=== PATIENT | male | born 1965 ===

== ENCOUNTER 2020-12-21 04:53 | Inpatient (IN) | payer MEDICAID ==
[~2020-12-21] VITALS: Ht 165.1 cm; Wt 68.9 kg
[2020-12-21] MEDS ORDERED: ONDANSETRON HCL 4 MG/2 ML VIAL IV ONE ×2 (05:30→18:00)
[2020-12-21] MEDS ORDERED: MORPHINE SULFATE 4 MG/ML SYR/VIAL IV ONE (05:30)
[2020-12-21] MEDS ORDERED: SODIUM CHLORIDE 0.9% 1,000 ML IV ONE ×2 (05:30→15:15)
[2020-12-21 08:16] LABS: Albumin 3.6 g/dL (3.4-5.0); Calcium 8.5 mg/dL (8.5-10.1); Potassium 3.9 mmol/L (3.5-5.1)
[2020-12-21 08:19] LABS: BUN/Creatinine Ratio 20.9; Bilirubin, Total 1.1 mg/dL (0.2-1.0); Total Protein 6.9 g/dL (6.4-8.2)
[2020-12-21 08:45] LABS: Basophils # (auto) 0 10 ^3/uL (0-0.2); Basophils % (auto) 0.3 % (0.0-2.0); Eosinophils # (auto) 0 10 ^3/uL (0-0.8); Eosinophils % (auto) 0.1 % (0.0-7.0); Hematocrit 41.3 % (41.0-53.0); Hemoglobin 14.4 g/dL (13.5-17.5); Lymphocytes # (auto) 0.5 10 ^3/uL (0.4-5.4); Lymphocytes % (auto) 6.6 % (10.0-50.0); Mean Corpuscular Hemoglobin 31.7 pg (28.0-32.0); Mean Corpuscular Hgb Conc. 34.9 g/dL (32.0-36.0); Mean Corpuscular Volume 90.8 fL (80.0-100.0); Monocytes # (auto) 0.4 10 ^3/uL (0-1.3); Monocytes % (auto) 5.3 % (0.0-12.0); Neutrophils # (auto) 7.2 10 ^3/uL (1.6-8.6); Neutrophils % (auto) 87.7 % (37.0-80.0); Nucleated Red Blood Cells % 0.1 %; Red Blood Cells 4.54 10^6/uL (4.5-5.90); Red Cell Distribution Width 12.8 % (11.8-14.3); White Blood Cell 8.2 10^3/uL (4.4-10.8)
[2020-12-21 09:12] LABS: Lipase 5740 U/L (73-393)
[2020-12-21] MEDS ORDERED: cefTRIAXone 1GM/50ML D5W 50 ML IV ONE (12:15)
[2020-12-21] MEDS ORDERED: metroNIDAZOLE 500MG/100ML 100 ML IV ONE (12:15)
[2020-12-21] MEDS ORDERED: IOHEXOL 300 MG/ML 100ML BOTTLE IJ ONE (12:21)
[2020-12-21] MEDS ORDERED: MORPHINE SULFATE INJECTION 2 MG/ML SYRG IV PRN (15:15)
[2020-12-21] MEDS: LACTATED RINGER'S 1,000 ML IV SCH (15:15)
[2020-12-21] MEDS ORDERED: NITROGLYCERIN 0.4 MG SL TAB SL PRN (15:15)
[2020-12-21 15:51] LABS: Basophils # (auto) 0 10 ^3/uL (0-0.2); Basophils % (auto) 0.4 % (0.0-2.0); Eosinophils # (auto) 0 10 ^3/uL (0-0.8); Eosinophils % (auto) 0.1 % (0.0-7.0); Hematocrit 42.9 % (41.0-53.0); Hemoglobin 14.7 g/dL (13.5-17.5); Lymphocytes # (auto) 0.9 10 ^3/uL (0.4-5.4); Lymphocytes % (auto) 9.4 % (10.0-50.0); Mean Corpuscular Hemoglobin 31.3 pg (28.0-32.0); Mean Corpuscular Hgb Conc. 34.2 g/dL (32.0-36.0); Mean Corpuscular Volume 91.5 fL (80.0-100.0); Monocytes # (auto) 0.6 10 ^3/uL (0-1.3); Neutrophils # (auto) 7.7 10 ^3/uL (1.6-8.6); Neutrophils % (auto) 83.1 % (37.0-80.0); Nucleated Red Blood Cells % 0.1 %; Red Blood Cells 4.69 10^6/uL (4.5-5.90); Red Cell Distribution Width 13.1 % (11.8-14.3); White Blood Cell 9.3 10^3/uL (4.4-10.8)
[2020-12-21 16:02] LABS: BUN/Creatinine Ratio 17.4; Calcium 7.9 mg/dL (8.5-10.1); Potassium 4.5 mmol/L (3.5-5.1)
[2020-12-21] MEDS ORDERED: FOLIC ACID 1 MG, MULTIPLE VITAMIN 10 ML, MAGNESIUM SULF SDV 50% 8 MEQ, THIAMINE INJ 100... INJ ONE ×5 (17:15)
[2020-12-21] MEDS ORDERED: MORPHINE SULFATE INJECTION 2 MG/ML SYRG IV ONE (18:00)
[2020-12-21 22:00] VITALS: BP 123/83
[2020-12-22 06:00] VITALS: BP 133/81
[2020-12-22] MEDS: LACTATED RINGER'S 1,000 ML IV SCH ×3 (06:13→21:15)
[2020-12-22 09:00] VITALS: BP 140/79
[2020-12-22] MEDS ORDERED: METF-370 PO (10:16)
[2020-12-22] MEDS ORDERED: GLIP5TAB12 PO (10:16)
[2020-12-22] MEDS ORDERED: FOLIC ACID 1 MG, MULTIPLE VITAMIN 10 ML, MAGNESIUM SULF SDV 50% 8 MEQ, THIAMINE INJ 100... INJ SCH ×5 (12:00)
[2020-12-22 17:00] VITALS: BP 135/78
[2020-12-22] MEDS ORDERED: DEXTROSE (50%) 50ML SYRG IV PRN (17:45)
[2020-12-22] MEDS ORDERED: LATA0.0019 (17:49)
[2020-12-22] MEDS ORDERED: INSU1INJ19 SC (17:49)
[2020-12-22] MEDS ORDERED: PIOG1TAB36 PO (17:49)
[2020-12-22] MEDS ORDERED: OMEP-260 PO (17:49)
[2020-12-22] MEDS ORDERED: ATOR20TA50 PO (17:49)
[2020-12-22] MEDS ORDERED: INSULIN LANTUS (GLARGINE) 1 /0.01ml (100units/ml) SC SCH ×2 (18:00→22:00)
[2020-12-22] MEDS ORDERED: ONDANSETRON HCL 4 MG/2 ML VIAL IV PRN (18:15)
[2020-12-22] MEDS ORDERED: HYDROcodone-ACET 5/325MG TAB PO PRN (18:15)
[2020-12-22] MEDS ORDERED: ACETAMINOPHEN 325 MG TAB PO PRN (18:15)
[2020-12-22] MEDS ORDERED: hydrALAZINE HCL 20 MG/ML VL IV PRN (18:15)
[2020-12-22 18:49] LABS: BUN/Creatinine Ratio 15.5; Calcium 8.3 mg/dL (8.5-10.1); Potassium 3.3 mmol/L (3.5-5.1)
[2020-12-22 18:53] LABS: Cholesterol 164 mg/dL (< 200); HDL Cholesterol 52 mg/dL (40-59); LDL Cholesterol 90 mg/dL (< 100); Triglycerides 184 mg/dL (< 150)
[2020-12-22] MEDS: InsuLIN REG 1unit/0.01ml Soln (100units/ml) SC SCH (20:00)
[2020-12-22] MEDS: ACCU-CHEK COMFORT CURVE STRIP VI SCH (20:00)
[2020-12-22 22:00] VITALS: BP 149/83
[2020-12-22] MEDS ORDERED: ATORVASTATIN 20 MG TAB PO SCH (22:00)
[2020-12-22] MEDS: GABAPENTIN 300 MG CAP PO SCH (22:41)
[2020-12-23] MEDS: ACCU-CHEK COMFORT CURVE STRIP VI SCH ×4 (04:00→11:30)
[2020-12-23] MEDS: InsuLIN REG 1unit/0.01ml Soln (100units/ml) SC SCH ×4 (04:00→11:30)
[2020-12-23 05:00] VITALS: BP 127/73
[2020-12-23 06:16] LABS: Potassium 3.4 mmol/L (3.5-5.1)
[2020-12-23 06:26] LABS: BUN/Creatinine Ratio 14.3; Bilirubin, Total 0.8 mg/dL (0.2-1.0); Calcium 8.1 mg/dL (8.5-10.1); Total Protein 6.3 g/dL (6.4-8.2)
[2020-12-23] MEDS: LACTATED RINGER'S 1,000 ML IV SCH (07:15)
[2020-12-23 09:00] VITALS: BP 147/99
[2020-12-23] MEDS: GABAPENTIN 300 MG CAP PO SCH (09:00)
[2020-12-23] MEDS ORDERED: POTASSIUM CHL 20 Meq TABLET PO ONE (09:45)
[2020-12-23] MEDS ORDERED: FOLIC ACID 1 MG TAB PO SCH (10:00)
[2020-12-23] MEDS ORDERED: PANTOPRAZOLE 40 MG TAB PO SCH (10:00)
[2020-12-23] MEDS ORDERED: THIAMINE HCL 100 MG TAB PO SCH (10:00)
[2020-12-23] MEDS ORDERED: POTA-180 PO (10:01)
[2020-12-23] MEDS ORDERED: FOLI1TAB6 PO (10:01)
[2020-12-23] MEDS ORDERED: THIA100T10 PO (10:01)
== END 2020-12-23 12:50 | disposition home or self-care (01) | DRG 282 ==
LOC: ER 04:53 → TELE 15:06 → TELE-WESTW 22:22
PROVIDERS: ADMIT Internal Medicine; ATTEND Internal Medicine
DX: K85.20 Alcohol induced acute pancreatitis without necrosis or infection (principal); E11.9 Type 2 diabetes mellitus without complications; Z20.822 Contact with and (suspected) exposure to COVID-19; E78.5 Hyperlipidemia, unspecified; E87.6 Hypokalemia; F10.10 Alcohol abuse, uncomplicated; I10 Essential (primary) hypertension; K21.9 Gastro-esophageal reflux disease without esophagitis; Y90.0 Blood alcohol level of less than 20 mg/100 ml; Z79.84 Long term (current) use of oral hypoglycemic drugs
CPT/HCPCS: 36415; 74177; 80048; 80053; 80061; 80320; 82150; 82962; 83605; 83690; 84484; 85025; 87040; 87426; 93005; 96361; 96365; 96368; 96375; G0378; J0696; J1815; J2405; J3490

== ENCOUNTER 2021-01-15 00:52 | Emergency (ER) | payer MEDICAID ==
[~2021-01-15] VITALS: Ht 165.1 cm; Wt 68.0 kg
[~2021-01-15 00:52] MED LIST: ATOR20TA50 PO; FOLI1TAB6 PO; GLIP5TAB12 PO; LATA0.0019; METF-370 PO; POTA-180 PO; THIA100T10 PO
[2021-01-15 02:20] LABS: Basophils # (auto) 0 10 ^3/uL (0-0.2); Basophils % (auto) 0.4 % (0.0-2.0); Eosinophils # (auto) 0.1 10 ^3/uL (0-0.8); Hematocrit 39.5 % (41.0-53.0); Hemoglobin 13.5 g/dL (13.5-17.5); Lymphocytes % (auto) 21.7 % (10.0-50.0); Mean Corpuscular Hgb Conc. 34.2 g/dL (32.0-36.0); Mean Corpuscular Volume 90.4 fL (80.0-100.0); Monocytes # (auto) 0.6 10 ^3/uL (0-1.3); Monocytes % (auto) 6.4 % (0.0-12.0); Neutrophils # (auto) 6.4 10 ^3/uL (1.6-8.6); Neutrophils % (auto) 70.5 % (37.0-80.0); Nucleated Red Blood Cells % 0.1 %; Red Blood Cells 4.37 10^6/uL (4.5-5.90); Red Cell Distribution Width 12.4 % (11.8-14.3); White Blood Cell 9.1 10^3/uL (4.4-10.8)
[2021-01-15 02:39] LABS: Potassium 4.4 mmol/L (3.5-5.1)
[2021-01-15 02:43] LABS: BUN/Creatinine Ratio 11.9; Calcium 8.7 mg/dL (8.5-10.1)
[2021-01-15 02:49] LABS: Bilirubin, Total 0.4 mg/dL (0.2-1.0); Total Protein 7.1 g/dL (6.4-8.2)
[2021-01-15 06:16] LABS: Urine Bacteria FEW /hpf (None Seen); Urine Blood Negative /uL (Negative); Urine Hyaline Cast FEW /lpf (0 - 2); Urine Specific Gravity 1.009 (1.001-1.035); Urine Sperm PRESENT /hpf (None Seen); Urine WBC 1 /hpf (0 - 3)
[2021-01-15 07:26] VITALS: BP 144/83
== END 2021-01-15 07:26 | disposition home or self-care (01) ==
LOC: ER 00:56
DX: R60.0 Localized edema (principal); I87.8 Other specified disorders of veins; E11.9 Type 2 diabetes mellitus without complications; Z79.84 Long term (current) use of oral hypoglycemic drugs; Z79.899 Other long term (current) drug therapy
CPT/HCPCS: 36415; 71045; 80053; 81001; 83880; 84484; 85025